=== PATIENT | female | born 1930 ===

== ENCOUNTER 2016-09-16 09:55 | Emergency (ER) | payer OTHER ==
--- NOTE | 2016-09-16 11:45 | RAD ---
INDICATION: Cough COMPARISON: February 05, 2016 TECHNIQUE: PA and lateral dual-energy views were obtained. FINDINGS: Bones/Soft Tissues: There are no acute bony findings. Cardiomediastinal: The cardiomediastinal silhouette is normal. Lungs: There are no infiltrates. Pleura: There are no pleural effusions. Other: None IMPRESSION: NO ACTIVE DISEASE.
[2016-09-16] MEDS: NS 0.9% 1000 ML* 2,000 ML IV ONE ×2 (12:26→13:19)
[2016-09-16 12:42] LABS: Hematocrit 42 % (35-47); Hemoglobin 13.6 g/dl (12.0-16.0); Mean Corpuscular HGB Conc 33 g/dl (31-36); Mean Corpuscular Hemoglobin 25 pg (27-31); Mean Corpuscular Volume 77 fL (80-97); Mean Platelet Volume 10 um3 (7.4-10.4); Red Blood Count 5.43 10^6/ul (4.0-5.4); Red Cell Distribution Width 13 % (10.5-15); White Blood Count 6.3 10^3/ul (3.5-10.8)
[2016-09-16] MEDS ORDERED: Meclizine TAB* 12.5 MG PO ONE (13:02)
[2016-09-16 13:05] LABS: Troponin I 0.05 ng/mL (<0.04)
[2016-09-16 13:22] LABS: Urine Bacteria Absent (Absent); Urine Bilirubin Negative (Negative); Urine Glucose 3+(>=500 mg/dL) (Negative); Urine Nitrite Negative (Negative)
[2016-09-16 13:36] LABS: TSH (Thyroid Stimulating Horm) 1.75 mcIU/mL (0.34-5.60)
[2016-09-16 15:56] LABS: ALT 20 U/L (7-52); AST 20 U/L (13-39); Albumin 3.7 g/dL (3.2-5.2); Alkaline Phosphatase 109 U/L (34-104); Anion Gap 6 mmol/L (2-11); Blood Urea Nitrogen 17 mg/dL (6-24); C Reactive Protein < 1.00 mg/L (< 5.00); CO2 Carbon Dioxide 23 mmol/L (22-32); Calcium 8.8 mg/dL (8.6-10.3); Chloride 106 mmol/L (101-111); EGFR African American 95.9 (>60); EGFR Non-African American 74.6 (>60); Globulin 3.2 g/dL (2-4); Glucose 158 mg/dL (70-100); Magnesium 1.8 mg/dL (1.9-2.7); Potassium 4.2 mmol/L (3.5-5.0); Sodium 135 mmol/L (133-145); Total Protein 6.9 g/dL (6.4-8.9)
[2016-09-16 16:02] LABS: Troponin I 0.05 ng/mL (<0.04)
[2016-09-16] MEDS ORDERED: Benzonatate CAP* 100 MG PO ONE (16:04)
--- NOTE | 2016-09-16 16:29 | ED ---
Awilda Orellana SooYoung, scribed for Michael Hernandez MD on 09/16/16 at 1045 . Dizziness - HPI Summary HPI Summary: An 85 y/o F presents to ED with dizziness onset approx 0200. Described as bed- spinning. Associated sx: nausea, increased unsteadiness when walking, high blood sugar and high BP this AM. Denies tinnitus, denies dizziness in ED. Secondary, pt has had a cough for the past two months, took ABX and OTC meds. PMHx: insulin DM, HTN. PSHx: goiter removal from neck. Family notes having been hospitalized last summer for similar sx minus the dizziness today. - History Of Current Complaint Chief Complaint: EDDizziness Stated Complaint: HIGH BLOOD SUGAR/DIZZY Time Seen by Provider: 09/16/16 10:33 Hx Obtained From: Patient, Family/Cardiovascular Sonographer Onset/Duration: Resolved Severity Currently: None Character: Room Spinning Associated Signs And Symptoms: Positive: Nausea, Unsteady Gait. Negative: Tinnitus - Allergies/Home Medications Allergies/Adverse Reactions: Allergies Allergy/AdvReac Type Severity Reaction Status Date / Time No Known Allergies Allergy Verified 09/16/16 10:00 PMH/Surg Hx/FS Hx/Imm Hx Previously Healthy: No Endocrine/Hematology History: Reports: Hx Diabetes - TYPE 2, Hx Thyroid Disease - HYPERPARATHYROIDISM Cardiovascular History: Reports: Hx Hypercholesterolemia, Hx Hypertension, Other Cardiovascular Problems/Disorders - CARDIOMEGALY Denies: Hx Angina, Hx Congestive Heart Failure, Hx Coronary Artery Disease Respiratory History: Denies: Hx Asthma GI History: Reports: Hx Gastroesophageal Reflux Disease History: Reports: Hx Kidney Stones Denies: Hx Renal Disease Sensory History: Reports: Hx Cataracts, Hx Contacts or Glasses Opthamlomology History: Reports: Hx Cataracts, Hx Contacts or Glasses - Surgical History Surgery Procedure, Year, and Place: KIDNEY STONE SURGERY x2. Cataract Surgery @ Dr Gil's office 2006, Hyesterectomy, Right Neck Cyst Excision,. [place] [facility] [place] Infectious Disease History: No Infectious Disease History: Denies: Traveled Outside the [place] in Last 30 Days - Family History Known Family History: Positive: Hypertension - siblings, Diabetes - siblings - Social History Occupation: Retired Lives: With Family Alcohol Use: None Hx Substance Use: No Substance Use Type: Reports: None Hx Tobacco Use: No Smoking Status (MU): Never Smoked Tobacco Review of Systems Positive: Other - pos: high blood sugar. Negative: Fever Positive: Other - neg: tinnitus Positive: Other - pos: high blood pressure Positive: Nausea Neurological: Other - pos: dizzyness All Other Systems Reviewed And Are Negative: Yes Physical Exam - Summary Physical Exam Summary: The patient is well-nourished in no acute distress and in no acute pain. The skin is warm, GOOD SKIN TURGOR. MILDLY DIAPHORETIC. HEENT: The head is normocephalic and atraumatic. The pupils are equal and reactive. The conjunctivae are clear and without drainage. Nares are patent and without drainage. Mouth reveals moist mucous membranes and the throat is without erythema and exudate. The external ears are intact. The ear canals are patent and without drainage. The tympanic membranes are intact. UNABLE TO ASSESS EXTRAOCULAR MUSCLES. NO NYSTAGMUS BUT DIFFICULT TO ASSESS. Neck is supple with full range of motion and non-tender. There are no carotid bruits. There is no neck vein distension. Respiratory: Chest is non-tender. Lungs are clear to auscultation and breath sounds are symmetrical and equal. Cardiovascular: BRADYCARDIC. There is no murmur or rub auscultated. There is no peripheral edema and pulses are symmetrical and equal. Abdomen: The abdomen is soft and non-tender. There are normal bowel sounds heard in all four quadrants and there is no organomegaly palpated. Musculoskeletal: There is no back pain noted. Extremities are non-tender with full range of motion. There is good capillary refill. There is no peripheral edema or calf tenderness elicited. Neurological: Patient is alert and oriented to person, place and time. The patient has symmetrical motor strength in all four extremities. Cranial nerves are grossly intact. Deep tendon reflexes are symmetrical and equal in all four extremities. NO FACIAL DROOP. CRANIAL NERVES II - XII INTACT. Psychiatric: The patient has an appropriate affect and does not exhibit any anxiety or depression. Triage Information Reviewed: Yes Vital Signs On Initial Exam: Initial Vitals Temp Pulse Resp BP Pulse Ox 98.4 F 52 14 158/64 100 09/16/16 10:09/16/16 10:09/16/16 10:00 09/16/16 10:09/16/16 10:00 Vital Signs Reviewed: Yes Diagnostics - Vital Signs Vital Signs Temp Pulse Resp BP Pulse Ox 09/16/16 10:00 98.4 F 52 14 158/64 100 - Laboratory Lab Results: Lab Results 09/16/16 09/16/16 09/16/16 Range/Units 12:27 12:27 12:27 WBC 6.3 (3.5-10.8) 10^3/ul RBC 5.43 H (4.0-5.4) 10^6/ul Hgb 13.6 (12.0-16.0) g/dl Hct 42 (35-47) % MCV 77 L (80-97) fL MCH 25 L (27-31) pg MCHC 33 (31-36) g/dl RDW 13 (10.5-15) % Plt Count 118 L (150-450) 10^3/ul MPV 10 (7.4-10.4) um3 Neut % (Auto) 42.7 (38-83) % Lymph % (Auto) 49.5 H (25-47) % [place] % (Auto) 6.3 (1-9) % Eos % (Auto) 0.5 (0-6) % Baso % (Auto) 1.0 (0-2) % Absolute Neuts (auto) 2.7 (1.5-7.7) 10^3/ul Absolute Lymphs (auto) 3.1 (1.0-4.8) 10^3/ul Absolute Monos (auto) 0.4 (0-0.8) 10^3/ul Absolute Eos (auto) 0 (0-0.6) 10^3/ul Absolute Basos (auto) 0.1 (0-0.2) 10^3/ul Absolute Nucleated RBC 0 10^3/ul Nucleated RBC % 0.1 Sodium Cancelled Potassium Cancelled Chloride Cancelled Carbon Dioxide Cancelled Anion Gap Cancelled BUN Cancelled Creatinine Cancelled Est GFR ( Amer) Cancelled Est GFR (Non-Af Amer) Cancelled BUN/Creatinine Ratio Cancelled Glucose Cancelled Lactic Acid (0.5-2.0) mmol/L Calcium Cancelled Magnesium Cancelled Total Bilirubin Cancelled AST Cancelled ALT Cancelled Alkaline Phosphatase Cancelled Troponin I 0.05 H* (<0.04) ng/mL C-Reactive Protein Cancelled B-Natriuretic Peptide 472 H ( - 100) pg/mL Total Protein Cancelled Albumin Cancelled Globulin Cancelled Albumin/Globulin Ratio Cancelled TSH 1.75 (0.34-5.60) mcIU/mL Urine Color Urine Appearance Urine pH (5-9) Ur Specific [place] (1.010-1.030) Urine Protein (Negative) Urine Ketones (Negative) Urine Blood (Negative) Urine Nitrate (Negative) Urine Bilirubin (Negative) Urine Urobilinogen (Negative) Ur Leukocyte Esterase (Negative) Urine WBC (Auto) (Absent) Urine RBC (Auto) (Absent) Ur Squamous Epith Cells (Absent) Urine Bacteria (Absent) Urine Glucose (Negative) 09/16/16 09/16/16 09/16/16 Range/Units 13:13 15:30 15:30 WBC (3.5-10.8) 10^3/ul RBC (4.0-5.4) 10^6/ul Hgb (12.0-16.0) g/dl Hct (35-47) % MCV (80-97) fL MCH (27-31) pg MCHC (31-36) g/dl RDW (10.5-15) % Plt Count (150-450) 10^3/ul MPV (7.4-10.4) um3 Neut % (Auto) (38-83) % Lymph % (Auto) (25-47) % [place] % (Auto) (1-9) % Eos % (Auto) (0-6) % Baso % (Auto) (0-2) % Absolute Neuts (auto) (1.5-7.7) 10^3/ul Absolute Lymphs (auto) (1.0-4.8) 10^3/ul Absolute Monos (auto) (0-0.8) 10^3/ul Absolute Eos (auto) (0-0.6) 10^3/ul Absolute Basos (auto) (0-0.2) 10^3/ul Absolute Nucleated RBC 10^3/ul Nucleated RBC % Sodium 135 Potassium 4.2 Chloride 106 Carbon Dioxide 23 Anion Gap 6 BUN 17 Creatinine 0.74 Est GFR ( Amer) 95.9 Est GFR (Non-Af Amer) 74.6 BUN/Creatinine Ratio 23.0 H Glucose 158 H Lactic Acid 1.0 (0.5-2.0) mmol/L Calcium 8.8 Magnesium 1.8 L Total Bilirubin 0.70 AST 20 ALT 20 Alkaline Phosphatase 109 H Troponin I 0.05 H* (<0.04) ng/mL C-Reactive Protein < 1.00 B-Natriuretic Peptide ( - 100) pg/mL Total Protein 6.9 Albumin 3.7 Globulin 3.2 Albumin/Globulin Ratio 1.2 TSH (0.34-5.60) mcIU/mL Urine Color Yellow Urine Appearance Clear Urine pH 6.0 (5-9) Ur Specific [place] 1.010 (1.010-1.030) Urine Protein Negative (Negative) Urine Ketones Trace H (Negative) Urine Blood 1+ H (Negative) Urine Nitrate Negative (Negative) Urine Bilirubin Negative (Negative) Urine Urobilinogen Negative (Negative) Ur Leukocyte Esterase Negative (Negative) Urine WBC (Auto) Absent (Absent) Urine RBC (Auto) Trace(0-2/hpf) (Absent) Ur Squamous Epith Cells Present H (Absent) Urine Bacteria Absent (Absent) Urine Glucose 3+(>=500 mg/dl) H (Negative) Result Diagrams: 09/16/16 12:27 09/16/16 15:30 Lab Statement: Any lab studies that have been ordered have been reviewed, and results considered in the medical decision making process. - Radiology CXR Xray Interpretation: No Acute Changes - IMPRESSION: No active dz Radiology Interpretation Completed By: Radiologist - EKG 1 EKG Rhythm: Sinus Bradycardia EKG Interpretation: RBBB, T-waves changes present on old EKG, EKG Comparison: No Significant Change - no acute changes from old EKG 02/06/2016 Re-Evaluation - Re-Evaluation 1 Re-Evaluation Time: 14:49 Change: Unchanged Comment: Pt still midly dizzy. Waiting on her labs. Refuses the meclazine at first, but now will proceed with it. 2 Re-Evaluation Time: 15:54 Change: Improved Comment: Rechecked pt's c/o cough. No orthopea, dry cough, no SOB. Past tx bronchitis. No rales, rhonchi, wheezing. Heart regular. Will D/C pt with tessalon perles, antivert. Dizzy Course/Dx - Course Course Of Treatment: MDM: An 85 y/o F presents to ED with dizziness at 0200, resolved ORCHESTRA TEACHER to ED. Associated sx: nausea, increased unsteadiness when walking, high blood sugar and high BP this AM. Denies tinnitus. Pt has baseline cough. PMHx: insulin DM, HTN. Family states pt was hospitalized with similar sx last summer. Trop is 0.05. B-natriuretic peptide is elevated: 472. UA is negative except 1+ blood, 3+ glucose. CXR is negative. EKG shows bradhycardia, RBBB no acute changes from previous EKG in 01/2016. Second trop is 0.05. Glucose is elevated at 158. Will D/C pt with tessalon perles and antivert, to f/u with PCP. Pt and family voiced understanding. - Diagnoses Differential Diagnosis/HQI/PQRI: Benign Paroxysmal Positional Vertigo, Coronary Artery Disease, Hypovolemia, Labyrinthitis, Metabolic Abnormality, Myocardial Infarction, Other - hypertension, hyperglycemia, copugh, chf, bronchitis Provider Diagnoses: Dizziness, Vertigo, Dry cough, Mild dehydration Discharge - Discharge Plan Condition: Stable Disposition: HOME Prescriptions: Benzonatate CAP* [Tessalon CAP*] 100 mg PO TID #30 cap Meclizine HCl [Meclizine 25] 25 mg PO QID #30 tab Patient Education Materials: Benzonatate (By mouth), Meclizine (By mouth), Vertigo (ED), Acute Cough (ED), Dizziness (ED) Referrals: Ricardo Cortez MD [Primary Care Provider] - Additional Instructions: As we discussed, take your medications as prescribed. Follow up with your primary care physician. The documentation as recorded by the Awilda dumas SooYoung accurately reflects the service I personally performed and the decisions made by , Michael Hernandez MD.
[2016-09-16 16:33] VITALS: BP 151/70
== END 2016-09-16 16:33 | disposition home or self-care (01) ==
LOC: ED 09:55
DX: R42 Dizziness and giddiness (principal); R05 Cough; E86.0 Dehydration; I45.10 Unspecified right bundle-branch block; K21.9 Gastro-esophageal reflux disease without esophagitis; E11.9 Type 2 diabetes mellitus without complications; Z79.4 Long term (current) use of insulin; I10 Essential (primary) hypertension; E21.3 Hyperparathyroidism, unspecified; E78.00 Pure hypercholesterolemia, unspecified; I51.7 Cardiomegaly
CPT/HCPCS: 36415; 71020; 80053; 81003; 81015; 83605; 83735; 83880; 84443; 84484; 85025; 86140; 93005; 96360; 99284; A9270-GY

== ENCOUNTER 2019-09-21 17:21 | Emergency (ER) | payer SELFPAY ==
[2019-09-21 18:28] VITALS: BP 153/64
--- NOTE | 2019-09-21 18:44 | UC ---
Lower Extremity/Ankle HPI - HPI Summary HPI Summary: 88-year-old woman comes in with chief complaint of right martinez and right fourth toe pain. She accidentally struck a piece of furniture on 11 September 2019 and suffered pain in her right fourth toe and suffered a superficial laceration on the martinez bone on the right. Since that time until continues to hurt and the wound on the martinez started to become more painful and erythematous. No drainage. No fevers no chills. Patient is a diabetic. - History of Current Complaint Chief Complaint: UCLowerExtremity Stated Complaint: MARTINEZ INJURY Time Seen by Provider: 09/21/19 18:38 Pain Intensity: 8 - Allergies/Home Medications Allergies/Adverse Reactions: Allergies Allergy/AdvReac Type Severity Reaction Status Date / Time No Known Allergies Allergy Verified 09/21/19 18:28 Home Medications: Home Medications Insulin Detemir (NF) [Levemir 100 units/ml 10 ml VIAL (NF)] 25 unit SUBCUT QPM 08/28/14 [History Confirmed 09/21/19] Multivitamin [Multivitamins] 1 cap PO DAILY 08/28/14 [History Confirmed 09/21/19 ] Aspirin 81 mg CHEW TAB* 81 mg PO DAILY tab.chew 02/08/16 [Rx Confirmed 09/21/19 ] Diltiazem TAB* [Cardizem 30 MG Tab*] 30 mg PO Q12H #60 tab 02/08/16 [Rx Confirmed 09/21/19] Meclizine HCl [Meclizine 25] 25 mg PO QID #30 tab 09/16/16 [Rx Confirmed ] Cephalexin CAP* [Keflex CAP*] 500 mg PO TID #30 cap 09/21/19 [Rx] Losartan Potassium 100 mg PO DAILY 09/21/19 [History Confirmed 09/21/19] Metoprolol Succinate [Kapspargo Sprinkle] 25 mg PO DAILY 09/21/19 [History Confirmed 09/21/19] Mupirocin 1 applic TOPICAL BID #22 gm 09/21/19 [Rx] PMH/Surg Hx/FS Hx/Imm Hx Previously Healthy: Yes Endocrine History: Diabetes Cardiovascular History: Hypertension - Surgical History Surgical History: Yes Surgery Procedure, Year, and Place: KIDNEY STONE SURGERY x2. Cataract Surgery @ Dr Gil's office 2007, Hyesterectomy, Right Neck Cyst Excision,. Parathyrodiectomy @ [facility] [place] 2007 - Family History Known Family History: Positive: Hypertension - siblings, Diabetes - siblings - Social History Alcohol Use: None Substance Use Type: None Smoking Status (MU): Never Smoked Tobacco - Immunization History Most Recent Influenza Vaccination: Fall 2014 Most Recent Tetanus Shot: "Sometime in past" Most Recent Pneumonia Vaccination: FALL 2014 Review of Systems All Other Systems Reviewed And Are Negative: Yes Constitutional: Positive: Negative Skin: Positive: Other - SEE HPI Eyes: Positive: Negative ENT: Positive: Negative Respiratory: Positive: Negative Cardiovascular: Positive: Negative Gastrointestinal: Positive: Negative Motor: Positive: Negative Neurovascular: Positive: Negative Musculoskeletal: Positive: Other: - SEE HPI Neurological/Mental Status: Positive: Negative Psychological: Positive: Negative Is Patient Immunocompromised?: No Physical Exam Triage Information Reviewed: Yes Appearance: Well-Appearing, No Pain Distress, Well-Nourished Vital Signs: Initial Vital Signs Temp 99.2 F 09/21/19 18:20 Pulse 71 09/21/19 18:20 Resp 18 09/21/19 18:20 BP 153/64 09/21/19 18:20 Pulse Ox 98 09/21/19 18:20 Vital Signs Reviewed: Yes Eye Exam: Normal Eyes: Positive: Conjunctiva Clear Neck: Positive: Supple Respiratory: Positive: No respiratory distress Musculoskeletal: Positive: Other: - Right fourth toe is swollen and tender to palpation. No skin break appreciated. Neurological: Positive: Alert Psychological: Positive: Age Appropriate Behavior Skin: Positive: Other - Right mid martinez has a 1 cm diameter wound with eschar over it with some surrounding erythema and swelling which is tender to palpation. No drainage. No streaking. Lower Extremity Course/Dx - Course Course Of Treatment: I discussed the x-rays with the patient and her family. The right fourth toe is fractured in the distal part of the proximal phalanx. I do not appreciate any fracture of the tibia fibula. Final radiologist reading is pending. The toe fracture is closed. We'll start Keflex for the nonhealing wound on the right martinez. Also use mupirocin topically. Follow-up with the primary care doctor and/or wound care clinic for the wound. Follow-up with the PRIMARY care doctor and/or orthopedics for the toe fracture. Patient's to get reevaluated sooner if worse or any questions or concerns. - Differential Dx/Diagnosis Provider Diagnosis: Infected wound, Toe fracture, right Discharge ED - Sign-Out/Discharge Documenting (check all that apply): Patient Departure All imaging exams completed and their final reports reviewed: No - Discharge Plan Condition: Stable Disposition: HOME Prescriptions: Cephalexin CAP* [Keflex CAP*] 500 mg PO TID #30 cap Mupirocin 1 applic TOPICAL BID #22 gm Patient Education Materials: Wound Infection (ED), Toe Fracture (ED) Referrals: Ricardo Cortez MD [Primary Care Provider] - Reggie Patterson MD [Medical Doctor] - WOUND CARE AT [facility] [place] [Provider Group] Additional Instructions: FOLLOW UP WITH YOUR PRIMARY CARE DOCTOR AND/OR THE WOUND CARE CLINIC FOR YOUR INFECTED WOUND. FOLLOW UP WITH YOUR PRIMARY CARE DOCTOR OR ORTHOPEDICS FOR THE BROKEN TOE. GET REEVALUATED SOONER IF NOT IMPROVED OR WORSE OR ANY QUESTIONS OR CONCERNS. - Billing Disposition and Condition Condition: STABLE Disposition: Home
--- NOTE | 2019-09-22 10:06 | UC ---
- Progress Note Progress Note: Reviewed xray report. No fx tib fib. + fx 4th and 5th toes. (4th toe was noted wet read yesterday; both 4th and 5th toe are noted on radiology report) Also radiological evidence vascular calcification and decreased bone density. Recommend follow up as advised yesterday evening. RN to call pt with the above, and advise of the need for follow up. Otherwise without acute change in management. Course/Dx - Diagnoses Provider Diagnoses: Infected wound, Toe fracture, right Discharge ED - Sign-Out/Discharge Documenting (check all that apply): Post-Discharge Follow Up All imaging exams completed and their final reports reviewed: Yes - Discharge Plan Condition: Stable Disposition: HOME Prescriptions: Cephalexin CAP* [Keflex CAP*] 500 mg PO TID #30 cap Mupirocin 1 applic TOPICAL BID #22 gm Patient Education Materials: Toe Fracture (ED), Wound Infection (ED) Referrals: WOUND CARE AT [facility] [place] [Provider Group] Reggie Patterson MD [Medical Doctor] - Ricardo Cortez MD [Primary Care Provider] - Additional Instructions: FOLLOW UP WITH YOUR PRIMARY CARE DOCTOR AND/OR THE WOUND CARE CLINIC FOR YOUR INFECTED WOUND. FOLLOW UP WITH YOUR PRIMARY CARE DOCTOR OR ORTHOPEDICS FOR THE BROKEN TOE. GET REEVALUATED SOONER IF NOT IMPROVED OR WORSE OR ANY QUESTIONS OR CONCERNS. - Billing Disposition and Condition Condition: STABLE Disposition: Home
== END 2019-09-21 19:40 | disposition home or self-care (01) ==
LOC: UCEAST 17:21
DX: S92.911A Unspecified fracture of right toe(s), initial encounter for closed fracture (principal); L08.89 Other specified local infections of the skin and subcutaneous tissue; E11.9 Type 2 diabetes mellitus without complications; I10 Essential (primary) hypertension; Z79.4 Long term (current) use of insulin; Z79.82 Long term (current) use of aspirin; Z79.899 Other long term (current) drug therapy; W22.03XA Walked into furniture, initial encounter; Y92.9 Unspecified place or not applicable
CPT/HCPCS: 99202; G0463